=== PATIENT | female | born 1995 | race Caucasian/White ===

== ENCOUNTER 2024-03-06 01:36 | Emergency (ER) | payer SELFPAY ==
[2024-03-06 01:55] VITALS: BP 147/75; TEMP 98.2; O2SAT 98
[2024-03-06 02:23] LABS: HEMATOCRIT 52.4 % (36.0-47.0); HEMOGLOBIN 16.8 g/dl (12.0-15.5); MEAN CORPUSCULAR HEMOGLOBIN 27.5 pg (27.0-33.0); MEAN CORPUSCULAR HGB CONC 32.1 g/dl (32.0-36.5); MEAN CORPUSCULAR VOLUME 85.8 fl (80.0-96.0); PLATELET COUNT, AUTOMATED 588 10^3/uL (150-450); RED BLOOD COUNT 6.11 10^6/uL (4.00-5.40); WHITE BLOOD COUNT 9.2 10^3/uL (4.0-10.0)
[2024-03-06 03:19] LABS: ETHYL ALCOHOL (ETHANOL) 0.157 % (0.000-0.010)
[2024-03-06 03:21] LABS: SALICYLATE LEVEL < 3.0 MG/DL (<30)
[2024-03-06 03:22] LABS: ALBUMIN 4.1 G/DL (3.2-5.2); ALKALINE PHOSPHATASE 115 U/L (35-104); ALT/SGPT 142 U/L (7.0-40); AST/SGOT 78 U/L (<34); BILIRUBIN,DIRECT < 0.1 MG/DL (<0.4); BILIRUBIN,TOTAL 0.2 MG/DL (0.3-1.2); BLOOD UREA NITROGEN 7 MG/DL (9-23); CALCIUM LEVEL 9.4 MG/DL (8.5-10.1); CARBON DIOXIDE LEVEL 26 MMOL/L (20-31); CHLORIDE LEVEL 104 MMOL/L (98-107); CREATININE FOR GFR 0.56 MG/DL (0.55-1.30); GLOMERULAR FILTRATION RATE > 60.0 (>60); GLUCOSE, FASTING 104 MG/DL (60-100); POTASSIUM SERUM 4.8 MMOL/L (3.5-5.1); SODIUM LEVEL 142 MMOL/L (136-145); TOTAL PROTEIN 8.6 G/DL (5.7-8.2)
[2024-03-06 03:23] LABS: THYROID STIMULATING HORMONE 0.947 uIU/ML (0.55-4.78)
[2024-03-06 03:34] LABS: HCG, SERUM QUALITATIVE NEGATIVE (NEGATIVE)
[2024-03-06 04:57] LABS: AMPHETAMINES LEVEL URINE NEGATIVE (NEGATIVE); BARBITURATES URINE NEGATIVE (NEGATIVE); BENZODIAZEPINES URINE NEGATIVE (NEGATIVE); CANNABINOIDS URINE NEGATIVE (NEGATIVE); METHADONE URINE NEGATIVE (NEGATIVE); OPIATES URINE NEGATIVE (NEGATIVE); PHENCYCLIDINE URINE NEGATIVE (NEGATIVE)
[2024-03-06 04:59] LABS: COCAINE METABOLITE URINE POSITIVE (NEGATIVE)
[2024-03-06] MEDS ORDERED: LEXA1TAB PO (08:13)
[2024-03-06] MEDS ORDERED: LEVO50TA5 PO (08:13)
[2024-03-06 08:19] LABS: HEPATITIS B SURFACE ANTIGEN NEGATIVE (NEGATIVE)
[2024-03-06 08:40] LABS: HEPATITIS C VIRUS ABY INDEX < 0.02 INDEX (<0.8)
[2024-03-06 08:41] LABS: HEPATITIS B CORE ANTIBODY IGM NEGATIVE (NEGATIVE)
[2024-03-06] MEDS ORDERED: PROP20TA72 PO (09:13)
[2024-03-06] MEDS: ESCITALOPRAM OXALATE 10 MG TAB (LEXAPRO) PO ONE (09:14)
[2024-03-06] MEDS: LEVOTHYROXINE 50MCG TABLET (0.05MG) PO ONE (09:14)
[2024-03-06] MEDS ORDERED: HOME MED LIST COMPLETE! XX SCH (09:15)
== END 2024-03-06 11:44 | disposition home or self-care (01) ==
LOC: M ED 01:36
DX: F10.129 Alcohol abuse with intoxication, unspecified (principal); F19.10 Other psychoactive substance abuse, uncomplicated; F43.21 Adjustment disorder with depressed mood; R74.01 Elevation of levels of liver transaminase levels; Y90.6 Blood alcohol level of 120-199 mg/100 ml; Z63.0 Problems in relationship with spouse or partner